=== PATIENT | female | born 1960 | race Caucasian/White ===

== ENCOUNTER 2020-02-19 18:09 | Emergency (ER) | payer OTHER ==
[~2020-02-19] VITALS: Ht 157.5 cm; Wt 58.5 kg
[2020-02-19 18:18] VITALS: Ht 157.5 cm; Wt 58.5 kg
[2020-02-19 19:35] LABS: microscopic required? NO
[2020-02-19 19:40] LABS: urine erythrocyte NEGATIVE (NEGATIVE)
[2020-02-19 19:56] VITALS: BP 118/60
[2020-02-20 03:48] LABS: CARBON DIOXIDE 23.6 mmol/L (21-32); CREATININE SERUM 1.1 mg/dL (0.6-1.0); POTASSIUM SERUM 4.6 mmol/L (3.5-5.1)
[2020-02-20 03:49] LABS: ALBUMIN 3.8 g/dL (3.4-5.0); BILIRUBIN TOTAL 0.5 mg/dL (0.20-1.00); TOTAL PROTEIN, SERUM 7.8 g/dL (6.4-8.2)
== END 2020-02-20 00:42 | disposition home or self-care (01) ==
LOC: ED 18:09
PROVIDERS: Emergency Medicine
DX: R10.30 Lower abdominal pain, unspecified (principal); I10 Essential (primary) hypertension; F17.210 Nicotine dependence, cigarettes, uncomplicated; E78.00 Pure hypercholesterolemia, unspecified; Z87.442 Personal history of urinary calculi
CPT/HCPCS: 99406; J1885